=== PATIENT | male | born 1980 | race Caucasian/White ===

== ENCOUNTER → 2018-08-18 10:38 | Outpatient (CLI) | payer OTHER, SELFPAY ==
--- NOTE | 2018-08-18 | DI.ECHO.S_ITS ---
[facility] +---------+ : : [address] : [place] : : : : [id number] : : : : Phone: [phone]---------+ Echocardiogram Report + + :Name: ADRIEL BRIGGS Study Date: 08/18/2018 Height: 69 in : :[facility] Weight: 194 lb : : Gender: Male BSA: 2.0 m2 : :: 1980 Age: 38 yrs BP: 120/84 mmHg: :Reason For Study: QTC : : Performed By: Shirley Love : :Referring: FELY LIRIANO : + + Interpretation Summary Normal left ventricle size with ejection fraction 60-65%. Mildly dilated right ventricle with normal systolic function. Normal both atria. No valvular abnormality. Mildly dilated aortic root. Procedure: A two-dimensional transthoracic echocardiogram with color flow and Doppler was performed. The study quality was technically adequate. There is no prior echocardiogram noted for this patient. The patient was in normal sinus rhythm during the exam. Left Ventricle: The left ventricle is normal in size. There is normal left ventricular wall thickness. The ejection fraction is estimated to be 60-65%. Left ventricular wall motion is normal. Diastolic parameters suggest probable normal left ventricular diastolic function and normal filling pressures. Right Ventricle: The right ventricle is mildly dilated. The right ventricular systolic function is normal. Atria: The left atrial size is normal. Right atrial size is normal. The interatrial septum is intact with no evidence for an atrial septal defect. Mitral Valve: The mitral valve is normal in structure and function. There is no mitral regurgitation noted. Aortic Valve: The aortic valve opens well. No aortic regurgitation is present. Tricuspid Valve: The tricuspid valve is normal in structure and function. There is trace tricuspid regurgitation. The right ventricular systolic pressure is estimated to be at least 22 mmHg based on an estimated right atrial pressure of 3 mm Hg. Pulmonic Valve: The pulmonic valve is normal in structure and function. There is a trace or physiologic amount of pulmonic regurgitation. Great Vessels: The aortic root is mildly dilated. The dimensions of the ascending aorta are normal. The aortic arch is normal in size. The IVC is of normal diameter and collapses greater than 50% with a sniff. This suggests a low right atrial pressure of 3 mm Hg. Pericardium/ Pleura There is no pericardial effusion. There is no pleural effusion. MMode/2D Measurements & Calculations LVIDd: 5.0 cm Ao root diam: 3.9 cm LVIDs: 3.5 cm Aortic Jxn: 3.0 cm FS: 29.2 % asc Aorta Diam: 3.1 cm EPSS: 1.2 cm Ao Arch Diam (Prox Trans): 2.5 cm IVSd: 0.90 cm LVPWd: 0.81 cm LV aden. diameter/BSA (cm/m^2): 2.4 LV sys. diameter/BSA (cm/m^2): 1.7 LA A2 area: 15.5 cm2 RA long axis: 4.6 cm LA A4 area: 13.1 cm2 RA area: 14.9 cm2 LA length (vol): 4.6 cm RA vol: 41.2 ml LA vol: 37.3 ml RA : 20.2 ml/m2 LA vol index: 18.3 ml/m2 IVC diam: 1.9 cm RVDd major: 6.4 cm RVD1 (basal): 4.6 cm RVD2 (mid): 3.4 cm Doppler Measurements & Calculations Ao V2 max: 111.0 cm/sec MV E max [place]: 76.8 cm/sec Ao V2 mean: 77.3 cm/sec MV A max [place]: 59.9 cm/sec Ao max P.9 mmHg MV E/A: 1.3 Ao mean P.7 mmHg Med Peak E' [place]: 8.7 cm/sec Ao V2 VTI: 22.7 cm E/E' med: 8.8 Lat Peak E' [place]: 11.7 cm/sec E/E' lat: 6.6 E/e' average: 7.7 MV dec time: 0.24 sec MV P1/2t: 68.7 msec TR max [place]: 215.3 cm/sec MV P1/2t max [place]: 76.4 cm/sec TR max P.5 mmHg MVA(P1/2t): 3.2 cm2 PA V2 max: 78.5 cm/sec PA V2 mean: 51.2 cm/sec PA mean P.2 mmHg PA Accel Time: 0.11 sec Electronically signed by: Chau Herrera on Reading Physician:08/18/2018 01:23 PM
== END ==
PROVIDERS: Visit Provider Physician Assistant
DX: I51.9 Heart disease, unspecified (principal)
CPT/HCPCS: 93306